=== PATIENT | male | born 1950 | race Caucasian/White ===

== ENCOUNTER 2021-04-02 11:35 | Inpatient (IN) | payer MEDICARE, BC ==
[2021-04-02] MEDS ORDERED: Sodium Chloride 0.9% 1,000 ML IV ONE (12:24)
[2021-04-02] MEDS ORDERED: Sodium Chloride 0.9% 2.5 ML Syringe FLUSH PRN (12:24)
[2021-04-02] MEDS ORDERED: Sodium Chloride 0.9% 10 ML Syringe FLUSH PRN (12:24)
--- NOTE | 2021-04-02 12:25 | EDM.PDOC ---
ED HPI GENERAL MEDICAL PROBLEM - General Chief Complaint: Respiratory Problem Stated Complaint: SOB Time Seen by Provider: 04/02/21 12:03 Source of Information: Reports: Patient History Limitations: Reports: No Limitations - History of Present Illness INITIAL COMMENTS - FREE TEXT/NARRATIVE: HISTORY AND PHYSICAL: History of present illness: The patient is a 70-year-old male who presents to the emergency room with complaints of increased shortness of breath with possible COVID-19. The patient's states that he has had 12 days of fatigue and shortness of breath. The patient states that his took a home COVID-19 test which was positive. The patient himself has not had a COVID-19 test. Patient states that he will have extreme fatigue and some shortness of breath for a few days and then have several days for which he feels better. And then the cycle will repeat. The patient has been monitoring his SPO2 at home and this morning it fell to 88%. The patient states that he has lost his taste but not his sense of smell. He denies nausea and vomiting. The patient states that he had diarrhea on his first day but has since had normal bowel movements. The patient stated he had a headache for the first 2 days of his illness, but none since then. Patient denies any fever, chills, change in vision, syncope or near syncope. Denies any chest pain or back pain. Denies any abdominal pain, dysuria. Has not noted any blood in urine or stool. Patient has been eating and drinking appropriately. Review of systems: As per history of present illness and below otherwise all systems reviewed and negative. Past medical history: As per history of present illness and as reviewed below otherwise noncontributory. Surgical history: As per history of present illness and as reviewed below otherwise noncontributory. Social history: See social history for further information Family history: As per history of present illness and as reviewed below otherwise noncon tributory. Physical exam: General: Well developed and well nourished. Alert and orientated x 3. Nontoxic in appearance and in no acute distress. Vital signs are stable and have been reviewed by me. Nursing notes were reviewed. HEENT: Atraumatic, normocephalic, pupils equal and reactive bilaterally, negative for conjunctival pallor or scleral icterus, mucous membranes moist, TMs normal bilaterally, throat clear, neck supple, nontender, trachea midline. No drooling or trismus noted. No meningeal signs. No hot potato voice noted. Lungs: Clear to auscultation bilaterally. No wheezes, rales, or rhonchi. Chest nontender. Normal work of breathing, no accessory muscles used. Heart: S1S2, regular rate and rhythm without overt murmur, gallops, or rubs. No JVD. No peripheral edema Abdomen: Soft, nondistended, nontender. Normoactive bowel sounds. Negative for masses or costovertebral tenderness. Skin: Intact, warm, dry. No lesions or rashes noted. Hematologic: No petechiae or purpra. Mucosa appropriate color and normal nail bed color and refill. Extremities: Atraumatic, moves all extremities per self without difficulty or deficits, negative for cords or calf pain. Neurovascular unremarkable. Neuro: Awake, alert, oriented. Cranial nerves II through XII unremarkable. Cerebellum unremarkable. Motor and sensory unremarkable throughout. Exam nonfocal. Psychiatric: Mood and affect are appropriate. Normal thought process. Answering questions appropriately. Notes: *This patient was seen and evaluated during the 2019 SARS-CoV-2 novel coronavirus pandemic period. Community viral transmission is ongoing at time of this encounter and the emergency department is operating under pandemic response procedures. As stated above the patient is a 70-year-old male who presents to the emergency department with complaints of shortness of breath. His home SPO2 has been 88%. The patient's has the same symptoms but is not short of breath. She tested positive for Covid with a home test approximately 10 days ago. Had the patient ambulate in the room with his PO2 monitor on. At initiation the patient was 90% on room air. After approximately 1 minute of walking around the room the pa tient decreased to 88%. Upon resting for 1.5 minutes the patient SPO2 was 90 to 92% room air. 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 The patient states that he has mild hypertension. He states that he exercises at least 5 times per week. The patient does not take any diuretics in denies heart failure. I will obtain lab work, a chest x-ray, EKG, and give the patient some IV fluids. The patient is agreeable with this plan. The patient's CBC and CMP are unremarkable. The patient is COVID-19 positive. I applied oxygen at 2 L. Patient as he continued to walk his oxygen saturation would drop into the high 80s. I spoke with the patient about possible discharge to home and he expressed that he would prefer to go home, however, he is unable to eat and is drinking very little. Due to the patient's age and comorbidities I have spoken with Dr. Burris who is agreeable with inpatient admission with telemetry. The patient's vital signs are stable at this time. I phoned the patient's and informed her of the patient's status and of the plan for admission. She was agreeable with this plan, as is the patient. Diagnostics: CBC, CMP, troponin, COVID-19 swab, EKG, CXR 1 view Therapeutics: Fluids Impression: Hypoxia, COVID-19 Definitive disposition and diagnosis as appropriate pending reevaluation and review of above. - Related Data Allergies Allergy/AdvReac Type Severity Reaction Status Date / Time No Known Allergies Allergy Verified 04/02/21 16:36 Home Meds: Home Meds Aspirin [Aspirin EC] 1 tab PO DAILY 07/26/15 [History] Metoprolol Succinate [Toprol XL] 1 tab PO DAILY 07/26/15 [History] Verapamil HCl [Verapamil ER] 120 mg PO DAILY 04/02/21 [History] atorvaSTATin [Lipitor] 20 mg PO BEDTIME 04/02/21 [History] Past Medical History HEENT History: Reports: None Cardiovascular History: Reports: High Cholesterol, Hypertension Respiratory History: Reports: None Gastrointestinal History: Reports: None Genitourinary History: Reports: Retention, Urinary Musculoskeletal History: Reports: None Neurological History: Reports: None Psychiatric History: Reports: None Endocrine/Metabolic History: Reports: Obesity/BMI 30+ Hematologic History: Reports: None Immunologic History: Reports: None Oncologic (Cancer) History: Reports: Prostate Dermatologic History: Reports: None - Infectious Disease History Infectious Disease History: Reports: Chicken Pox - Past Surgical History Head Surgeries/Procedures: Reports: None Cardiovascular Surgical History: Reports: None Male Surgical History: Reports: Prostatectomy, TURP-Transurethral Resection of Prostate Endocrine Surgical History: Reports: None Musculoskeletal Surgical History: Reports: Other (See Below) Other Musculoskeletal Surgeries/Procedures:: right achilles repair Oncologic Surgical History: Reports: None Social & Family History - Family History Family Medical History: No Pertinent Family History Oncologic: Reports: Colon, Other (See Below) Other Oncologic Family History: ovarian - Tobacco Use Tobacco Use Status *Q: Never Tobacco User Second Hand Smoke Exposure: Yes - Caffeine Use Caffeine Use: Reports: Coffee - Recreational Drug Use Recreational Drug Use: No ED ROS GENERAL - Review of Systems Review Of Systems: Comprehensive ROS is negative, except as noted in HPI. ED EXAM, GENERAL - Physical Exam Exam: See Below (See dictation) Course - Vital Signs Last Recorded V/S: Last Vital Signs Temp 98.1 F 04/02/21 19:49 Pulse 70 04/02/21 19:49 Resp 19 04/02/21 19:49 BP 145/83 H 04/02/21 19:49 Pulse Ox 92 L 04/02/21 19:49 - Orders/Labs/Meds Orders: Active Orders 24 hr Category Date Time Status Sodium Chloride 0.9% [Saline Flush] Med 04/02/21 12:24 Active 10 ml FLUSH ASDIRECTED PRN Sodium Chloride 0.9% [Saline Flush] Med 04/02/21 12:24 Active 2.5 ml FLUSH ASDIRECTED PRN Saline Lock Insert [OM.PC] Stat Oth 04/02/21 12:24 Ordered Medication Orders Acetaminophen (Acetaminophen 325 Mg Tab) 650 mg PO Q4H PRN PRN Reason: Pain (Mild 1-3)/fever Albuterol/Ipratropium (Albuterol/Ipratropium 3.0-0.5 Mg/3 Ml Neb Soln) 3 ml NEB Q4HRRT PRN PRN Reason: Shortness Of Breath/wheezing Albuterol/Ipratropium (Albuterol/Ipratropium 4 Gm Inhalation [place]) 0 gm INH Q4H [facility] Last Admin: 04/02/21 20:00 Dose: 2 puff Documented by: Admin: 04/02/21 17:37 Dose: 2 puff Documented by: NEVIN Dexamethasone (Dexamethasone 4 Mg Tab) 6 mg PO DAILY [facility] Last Admin: 04/02/21 17:40 Dose: 6 mg Documented by: NEVIN Enoxaparin Sodium (Enoxaparin 40 Mg/0.4 Ml Syringe) 40 mg SUBCUT Q24H [facility] Last Admin: 04/02/21 17:40 Dose: 40 mg Documented by: NEVIN Pantoprazole Sodium 40 mg/ (Sodium Chloride) 10 mls @ 300 mls/hr IV DAILY [facility] Remdesivir 100 mg/ Sodium (Chloride) 100 mls @ 100 mls/hr IV Q24H [facility] Stop: 04/06/21 17:14 Ondansetron HCl (Ondansetron 4 Mg/2 Ml Sdv) 4 mg IVPUSH Q4H PRN PRN Reason: Nausea/Vomiting Sodium Chloride (Sodium Chloride 0.9% 10 Ml Syringe) 10 ml FLUSH ASDIRECTED PRN PRN Reason: Keep Vein Open Last Admin: 04/02/21 12:40 Dose: 10 ml Documented by: OSBALDO Sodium Chloride (Sodium Chloride 0.9% 2.5 Ml Syringe) 2.5 ml FLUSH ASDIRECTED PRN PRN Reason: Keep Vein Open Last Admin: 04/02/21 12:40 Dose: 2.5 ml Documented by: OSBALDO Labs: Laboratory Tests 04/02/21 04/02/21 04/02/21 Range/Units 12:12 12:54 12:54 WBC 5.37 (4.0-11.0) K/uL RBC 4.78 (4.50-5.90) M/uL Hgb 15.0 (13.0-17.0) g/dL Hct 43.4 (38.0-50.0) % MCV 90.8 (80.0-98.0) fL MCH 31.4 (27.0-32.0) pg MCHC 34.6 (31.0-37.0) g/dL RDW Std Deviation 45.5 (28.0-62.0) fl RDW Coeff of Dianna 14 (11.0-15.0) % Plt Count 183 (150-400) K/uL MPV 10.30 (7.40-12.00) fL Neut % (Auto) 67.2 (48.0-80.0) % Lymph % (Auto) 20.9 (16.0-40.0) % [place] % (Auto) 11.7 (0.0-15.0) % Eos % (Auto) 0.0 (0.0-7.0) % Baso % (Auto) 0.2 (0.0-1.5) % Neut # (Auto) 3.6 (1.4-5.7) K/uL Lymph # (Auto) 1.1 (0.6-2.4) K/uL [place] # (Auto) 0.6 (0.0-0.8) K/uL Eos # (Auto) 0.0 (0.0-0.7) K/uL Baso # (Auto) 0.0 (0.0-0.1) K/uL Nucleated RBC % 0.0 /100WBC Nucleated RBCs # 0 K/uL Sodium 136 (136-148) mmol/L Potassium 4.2 (3.5-5.1) mmol/L Chloride 101 (98-107) mmol/L Carbon Dioxide 24.2 (21.0-32.0) mmol/L BUN 17 (7.0-18.0) mg/dL Creatinine 1.1 (0.8-1.3) mg/dL Est Cr Clr Drug Dosing 62.18 mL/min Estimated GFR (MDRD) > 60.0 ml/min Glucose 104 (74-106) mg/dL Calcium 8.7 (8.5-10.1) mg/dL Magnesium 2.1 (1.8-2.4) mg/dL Total Bilirubin 0.6 (0.2-1.0) mg/dL AST 46 H (15-37) IU/L ALT 58 (14-63) IU/L Alkaline Phosphatase 96 (46-116) U/L Troponin I < 0.050 (0.000-0.056) ng/mL Total Protein 6.9 (6.4-8.2) g/dL Albumin 3.4 (3.4-5.0) g/dL Globulin 3.5 (2.6-4.0) g/dL Albumin/Globulin Ratio 1.0 (0.9-1.6) SARS-CoV-2 RNA (LEVAR) POSITIVE H (NEGATIVE) Meds: Medications Generic Name Dose Route Start Last Admin Trade Name Freq PRN Reason Stop Dose Admin Acetaminophen 650 mg 04/02/21 16:10 Acetaminophen 325 Mg Tab PO Q4H PRN Pain (Mild 1-3)/fever Albuterol/Ipratropium 3 ml 04/02/21 16:10 Albuterol/Ipratropium 3.0-0.5 Mg/3 Ml Neb Soln NEB Q4HRRT PRN Shortness Of Breath/wheezing Albuterol/Ipratropium 0 gm 04/02/21 16:15 04/02/21 20:00 Albuterol/Ipratropium 4 Gm Inhalation [place] INH 2 puff Q4H [facility] Administration Dexamethasone 6 mg 04/02/21 16:15 04/02/21 17:40 Dexamethasone 4 Mg Tab PO 6 mg DAILY [facility] Administration Enoxaparin Sodium 40 mg 04/02/21 16:15 04/02/21 17:40 Enoxaparin 40 Mg/0.4 Ml Syringe SUBCUT 40 mg Q24H [facility] Administration Pantoprazole Sodium 40 mg/ 10 mls @ 300 mls/hr 04/03/21 09:00 Sodium Chloride IV DAILY [facility] Remdesivir 100 mg/ Sodium 100 mls @ 100 mls/hr 04/03/21 16:15 Chloride IV 04/06/21 17:14 Q24H [facility] Ondansetron HCl 4 mg 04/02/21 16:10 Ondansetron 4 Mg/2 Ml Sdv IVPUSH Q4H PRN Nausea/Vomiting Sodium Chloride 10 ml 04/02/21 12:24 04/02/21 12:40 Sodium Chloride 0.9% 10 Ml Syringe FLUSH 10 ml ASDIRECTED PRN Administration Keep Vein Open Sodium Chloride 2.5 ml 04/02/21 12:24 04/02/21 12:40 Sodium Chloride 0.9% 2.5 Ml Syringe FLUSH 2.5 ml ASDIRECTED PRN Administration Keep Vein Open Discontinued Medications Generic Name Dose Route Start Last Admin Trade Name Freq PRN Reason Stop Dose Admin Albuterol/Ipratropium 0 gm 04/02/21 16:14 Albuterol/Ipratropium 4 Gm Inhalation [place] INH Q4H PRN Dyspnea Sodium Chloride 1,000 mls @ 999 mls/hr 04/02/21 12:24 04/02/21 12:40 Normal Saline IV 04/02/21 13:24 999 mls/hr .BOLUS ONE Administration Remdesivir 200 mg/ Sodium 250 mls @ 250 mls/hr 04/02/21 16:30 04/02/21 17:40 Chloride IV 04/02/21 17:29 250 mls/hr ONETIME ONE Administration Departure - Departure Time of Disposition: 14:43 Disposition: Admitted As Inpatient 68 Condition: Good Clinical Impression: Hypoxia, COVID-19 - Discharge Information Sepsis Event Note (ED) - Evaluation Sepsis Screening Result: No Definite Risk - Focused Exam Vital Signs: Vital Signs Temp Temp Pulse Resp BP Pulse Ox 04/02/21 14:34 68 145/76 H 93 L 04/02/21 14:04 63 142/85 H 91 L 04/02/21 13:14 98.9 F 64 20 129/72 91 L 04/02/21 12:34 80 154/82 H 90 L 04/02/21 12:02 97.7 F 71 18 154/82 H 92 L - My Orders Last 24 Hours: My Active Orders 04/02/21 12:24 Sodium Chloride 0.9% [Saline Flush] 10 ml FLUSH ASDIRECTED PRN Sodium Chloride 0.9% [Saline Flush] 2.5 ml FLUSH ASDIRECTED PRN Saline Lock Insert [OM.PC] Stat - Assessment/Plan Last 24 Hours: My Active Orders 04/02/21 12:24 Sodium Chloride 0.9% [Saline Flush] 10 ml FLUSH ASDIRECTED PRN Sodium Chloride 0.9% [Saline Flush] 2.5 ml FLUSH ASDIRECTED PRN Saline Lock Insert [OM.PC] Stat
[2021-04-02 13:27] LABS: BLOOD UREA NITROGEN,BUN 17 mg/dL (7.0-18.0); CARBON DIOXIDE,CO2 24.2 mmol/L (21.0-32.0); CHLORIDE,CL 101 mmol/L (98-107); GLUCOSE RANDOM 104 mg/dL (74-106); POTASSIUM,K 4.2 mmol/L (3.5-5.1); SODIUM,NA 136 mmol/L (136-148)
--- NOTE | 2021-04-02 13:59 | CR ---
INDICATION: Shortness breath TECHNIQUE: Single view chest. FINDINGS: Normal cardiac mediastinal silhouette. Bibasilar patchy infiltrates. No effusion. No pneumothorax. Median sternotomy. IMPRESSION: Bibasilar patchy infiltrates. Dictated by Denise Hawthorne MD @ 04/02/2021 1:57:[address] Denise Hawthorne @ Apr 02 2021 1:57PM
[2021-04-02] MEDS ORDERED: Ondansetron 4 MG/2 ML SDV IVPUSH PRN (16:10)
[2021-04-02] MEDS ORDERED: Acetaminophen 325 MG Tab PO PRN (16:10)
[2021-04-02] MEDS ORDERED: Albuterol/Ipratropium 3.0-0.5 MG/3 ML Neb Soln NEB PRN (16:10)
[2021-04-02] MEDS ORDERED: Albuterol/Ipratropium 4 GM Inhalation Spray INH PRN (16:14)
--- NOTE | 2021-04-02 16:15 | PCM.HP.2 ---
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 Patient states that he has been having fatigue and shortness of breath for last 2 weeks. Patient states that his took Covid test at home which was positive but he himself has not been tested for it. Patient states that he has had episodes of extreme fatigue and some shortness of breath for past few days and, there were days when he felt better but other days when he felt worse. He also has since lost his sense of taste but not the sense of smell. He denies nausea vomiting and has been otherwise eating and drinking well. Patient states that he did have some diarrhea initially but ever since has had normal bowel movements. Patient has other nonspecific symptoms such as mild headache, fatigue, weakness. Patient denies any abdominal pain, dysuria, bloody urine or stool, dizziness, syncope, change in vision, fever or chills. In the ER patient was found to be 90% on room air, patient was given a walking trial upon which he dropped to 88%. Patient was started on 2 L of oxygen with which she was maintained 92%. Patient was tested for Covid which came back positive. Patient was admitted to the hospital for further management of acute hypoxic respiratory failure secondary to Covid pneumonia. Patient states that otherwise he maintains healthy lifestyle and patient states that he works out aggressively 5 times a week. Patient has not been vaccinated as he thought that he was pretty healthy and did not think it was needed. - Related Data Allergies/Adverse Reactions: Allergies Allergy/AdvReac Type Severity Reaction Status Date / Time No Known Allergies Allergy Verified 04/02/21 16:36 Home Medications: Home Meds Aspirin [Aspirin EC] 1 tab PO DAILY 07/26/15 [History] Metoprolol Succinate [Toprol XL] 1 tab PO DAILY 07/26/15 [History] Verapamil HCl [Verapamil ER] 5 mg PO DAILY 04/02/21 [History] atorvaSTATin [Lipitor] 20 mg PO BEDTIME 04/02/21 [History] Past Medical History HEENT History: Reports: None Cardiovascular History: Reports: High Cholesterol, Hypertension Respiratory History: Reports: None Gastrointestinal History: Reports: None Genitourinary History: Reports: Retention, Urinary Musculoskeletal History: Reports: None Neurological History: Reports: None Psychiatric History: Reports: None Endocrine/Metabolic History: Reports: Obesity/BMI 30+ Hematologic History: Reports: None Immunologic History: Reports: None Oncologic (Cancer) History: Reports: Prostate Dermatologic History: Reports: None - Infectious Disease History Infectious Disease History: Reports: Chicken Pox - Past Surgical History Head Surgeries/Procedures: Reports: None Cardiovascular Surgical History: Reports: None Male Surgical History: Reports: Prostatectomy, TURP-Transurethral Resection of Prostate Endocrine Surgical History: Reports: None Musculoskeletal Surgical History: Reports: Other (See Below) Other Musculoskeletal Surgeries/Procedures:: right achilles repair Oncologic Surgical History: Reports: None Social & Family History - Family History Family Medical History: No Pertinent Family History Oncologic: Reports: Colon, Other (See Below) Other Oncologic Family History: ovarian - Tobacco Use Tobacco Use Status *Q: Never Tobacco User Second Hand Smoke Exposure: Yes - Caffeine Use Caffeine Use: Reports: Coffee - Recreational Drug Use Recreational Drug Use: No H&P Review of Systems - Review of Systems: Review Of Systems: See Below General: Reports: Malaise, Weakness, Fatigue. Denies: Fever, Chills Pulmonary: Reports: Shortness of Breath, Cough. Denies: Wheezing Cardiovascular: Denies: Chest Pain, Palpitations Gastrointestinal: Denies: Abdominal Pain, Anorexia, Black Stool, Bloody Stool, Constipation, Vomiting Genitourinary: Denies: Dysuria, Frequency, Burning, Pain Musculoskeletal: Denies: Neck Pain, Shoulder Pain, Arm Pain Skin: Denies: Cyanosis, Jaundice, Mottled Psychiatric: Denies: Confusion, Depression, Mood Lability Neurological: Denies: Confusion, Dizziness, Headache Exam - Exam Exam: See Below - Vital Signs Vital Signs: Last Vital Signs Temp 36.4 C 04/02/21 16:09 Pulse 66 04/02/21 16:09 Resp 18 04/02/21 16:09 BP 144/77 H 04/02/21 16:09 Pulse Ox 92 L 04/02/21 16:09 Weight: 90.718 kg - Exam Quality Assessment: Supplemental Oxygen General: Alert, Oriented, Cooperative, Mild Distress Neck: Supple, Trachea Midline Lungs: Normal Respiratory Effort, Decreased Breath Sounds. No: Crackles, Rales Cardiovascular: Regular Rate, Regular Rhythm GI/Abdominal Exam: Normal Bowel Sounds, Soft, Non-Tender - Patient Data Lab Results Last 24 hrs: Laboratory Results - last 24 hr 04/02/21 04/02/21 04/02/21 Range/Units 12:12 12:54 12:54 WBC 5.37 (4.0-11.0) K/uL RBC 4.78 (4.50-5.90) M/uL Hgb 15.0 (13.0-17.0) g/dL Hct 43.4 (38.0-50.0) % MCV 90.8 (80.0-98.0) fL MCH 31.4 (27.0-32.0) pg MCHC 34.6 (31.0-37.0) g/dL RDW Std Deviation 45.5 (28.0-62.0) fl RDW Coeff of Dianna 14 (11.0-15.0) % Plt Count 183 (150-400) K/uL MPV 10.30 (7.40-12.00) fL Neut % (Auto) 67.2 (48.0-80.0) % Lymph % (Auto) 20.9 (16.0-40.0) % Hawkins % (Auto) 11.7 (0.0-15.0) % Eos % (Auto) 0.0 (0.0-7.0) % Baso % (Auto) 0.2 (0.0-1.5) % Neut # (Auto) 3.6 (1.4-5.7) K/uL Lymph # (Auto) 1.1 (0.6-2.4) K/uL Hawkins # (Auto) 0.6 (0.0-0.8) K/uL Eos # (Auto) 0.0 (0.0-0.7) K/uL Baso # (Auto) 0.0 (0.0-0.1) K/uL Nucleated RBC % 0.0 /100WBC Nucleated RBCs # 0 K/uL Sodium 136 (136-148) mmol/L Potassium 4.2 (3.5-5.1) mmol/L Chloride 101 (98-107) mmol/L Carbon Dioxide 24.2 (21.0-32.0) mmol/L BUN 17 (7.0-18.0) mg/dL Creatinine 1.1 (0.8-1.3) mg/dL Est Cr Clr Drug Dosing 62.18 mL/min Estimated GFR (MDRD) > 60.0 ml/min Glucose 104 (74-106) mg/dL Calcium 8.7 (8.5-10.1) mg/dL Magnesium 2.1 (1.8-2.4) mg/dL Total Bilirubin 0.6 (0.2-1.0) mg/dL AST 46 H (15-37) IU/L ALT 58 (14-63) IU/L Alkaline Phosphatase 96 (46-116) U/L Troponin I < 0.050 (0.000-0.056) ng/mL Total Protein 6.9 (6.4-8.2) g/dL Albumin 3.4 (3.4-5.0) g/dL Globulin 3.5 (2.6-4.0) g/dL Albumin/Globulin Ratio 1.0 (0.9-1.6) SARS-CoV-2 RNA (LEVAR) POSITIVE H (NEGATIVE) Result Diagrams: 04/02/21 12:54 04/02/21 12:54 Sepsis Event Note - Evaluation Sepsis Screening Result: No Definite Risk - Focused Exam Vital Signs: Vital Signs Temp Temp Pulse Resp BP Pulse Ox 04/02/21 16:09 36.4 C 66 18 144/77 H 92 L 04/02/21 15:35 75 133/73 93 L 04/02/21 15:04 68 140/75 91 L 04/02/21 14:34 68 145/76 H 93 L 04/02/21 14:04 63 142/85 H 91 L 04/02/21 13:14 37.2 C 64 20 129/72 91 L 04/02/21 12:34 80 154/82 H 90 L 04/02/21 12:02 36.5 C 71 18 154/82 H 92 L - Problem List (1) Hx of CABG SNOMED Code(s): 067044215, 863728642 ICD Code: Z95.1 - PRESENCE OF AORTOCORONARY BYPASS GRAFT Status: Acute Current Visit: Yes (2) Hypertension SNOMED Code(s): 93362725 ICD Code: I10 - ESSENTIAL (PRIMARY) HYPERTENSION Status: Acute Current Visit: Yes (3) Hyperlipidemia SNOMED Code(s): 84362620 ICD Code: E78.5 - HYPERLIPIDEMIA, UNSPECIFIED Status: Acute Current Visit: Yes (4) S/P TURP SNOMED Code(s): 968601557, 14838756, 477391095 ICD Code: Z90.79 - ACQUIRED ABSENCE OF OTHER GENITAL ORGAN(S) Status: Acute Current Visit: Yes (5) COVID-19 SNOMED Code(s): 630699836 ICD Code: U07.1 - COVID-19 Status: Acute Current Visit: Yes (6) Hypoxia SNOMED Code(s): 527733522 ICD Code: R09.02 - HYPOXEMIA Status: Acute Current Visit: Yes Problem List Initiated/Reviewed/Updated: Yes Orders Last 24hrs: Active Orders 24 hr Category Date Time Status Admission Status [Patient Status] [ADT] Stat ADT 04/02/21 14:42 Active Ambulate [RC] ASDIRECTED Care 04/02/21 16:10 Active Antiembolic Devices [RC] PER UNIT ROUTINE Care 04/02/21 16:11 Active Oxygen Therapy [RC] PRN Care 04/02/21 16:11 Active RT Aerosol Therapy [RC] ASDIRECTED Care 04/02/21 16:12 Active RT Post Treatment Assessment [RC] Click to Edit Care 04/02/21 16:14 Active RT Pre-Treatment Assessment [RC] Click to Edit Care 04/02/21 16:14 Active VTE/DVT Education [RC] PER UNIT ROUTINE Care 04/02/21 16:11 Active Vital Signs [RC] Q4H Care 04/02/21 16:11 Active Heart Healthy Diet [DIET] Diet 04/02/21 Dinner Active Acetaminophen [TylenoL] Med 04/02/21 16:10 Ordered 650 mg PO Q4H PRN Albuterol/Ipratropium [Combivent Respimat] Med 04/02/21 16:15 Ordered See Dose Instructions INH Q4H Albuterol/Ipratropium [Combivent Respimat] Med 04/02/21 16:14 Stop Req See Dose Instructions INH Q4H PRN Albuterol/Ipratropium [DuoNeb 3.0-0.5 MG/3 ML] Med 04/02/21 16:10 Ordered 3 ml NEB Q4HRRT PRN Enoxaparin [Lovenox] Med 04/02/21 16:15 Ordered 40 mg SUBCUT Q24H Ondansetron [Zofran] Med 04/02/21 16:10 Ordered 4 mg IVPUSH Q4H PRN Pantoprazole [ProTONIX IV] 40 mg Med 04/03/21 09:00 Ordered Sodium Chloride 0.9% [Normal Saline] 10 ml IV DAILY Remdesivir 100 mg Med 04/02/21 16:15 Ordered Sodium Chloride 0.9% [Normal Saline] 100 ml IV Q24H Remdesivir 200 mg Med 04/03/21 16:12 Ordered Sodium Chloride 0.9% [Normal Saline] 250 ml IV ONETIME Sodium Chloride 0.9% [Saline Flush] Med 04/02/21 12:24 Active 10 ml FLUSH ASDIRECTED PRN Sodium Chloride 0.9% [Saline Flush] Med 04/02/21 12:24 Active 2.5 ml FLUSH ASDIRECTED PRN dexAMETHasone Med 04/02/21 16:15 Ordered 6 mg PO DAILY Saline Lock Insert [OM.PC] Stat Oth 04/02/21 12:24 Ordered Sequential Compression Device [OM.PC] Per Unit Routine Oth 04/02/21 16:11 Ordered Medication Orders Acetaminophen (Acetaminophen 325 Mg Tab) 650 mg PO Q4H PRN PRN Reason: Pain (Mild 1-3)/fever Albuterol/Ipratropium (Albuterol/Ipratropium 3.0-0.5 Mg/3 Ml Neb Soln) 3 ml NEB Q4HRRT PRN PRN Reason: Shortness Of Breath/wheezing Albuterol/Ipratropium (Albuterol/Ipratropium 4 Gm Inhalation [place]andy[place]) 0 gm INH Q4H PRN PRN Reason: Dyspnea Dexamethasone (Dexamethasone 4 Mg Tab) 6 mg PO DAILY [facility]ACY Enoxaparin Sodium (Enoxaparin 40 Mg/0.4 Ml Syringe) 40 mg SUBCUT Q24H TRACY Pantoprazole Sodium 40 mg/ (Sodium Chloride) 10 mls @ 300 mls/hr IV DAILY [facility]ACY Remdesivir 200 mg/ Sodium (Chloride) 250 mls @ 250 mls/hr IV ONETIME ONE Stop: 04/03/21 16:13 Remdesivir 100 mg/ Sodium (Chloride) 100 mls @ 100 mls/hr IV Q24H [facility] Stop: 04/05/21 17:14 Ondansetron HCl (Ondansetron 4 Mg/2 Ml Sdv) 4 mg IVPUSH Q4H PRN PRN Reason: Nausea/Vomiting Sodium Chloride (Sodium Chloride 0.9% 10 Ml Syringe) 10 ml FLUSH ASDIRECTED PRN PRN Reason: Keep Vein Open Last Admin: 04/02/21 12:40 Dose: 10 ml Documented by: OSBALDO Sodium Chloride (Sodium Chloride 0.9% 2.5 Ml Syringe) 2.5 ml FLUSH ASDIRECTED PRN PRN Reason: Keep Vein Open Last Admin: 04/02/21 12:40 Dose: 2.5 ml Documented by: OSBALDO Assessment/Plan Comment:: 70-year-old old male admitted for acute hypoxic respiratory failure secondary to Covid Currently requiring 2 L of nasal cannula We will start patient on remdesivir, dexamethasone, Combivent, Lovenox Continue supportive care as needed Patient was able to tolerate his lunch well Resume home meds as appropriate DC in 1 to 2 days based on patient's hospital course
[2021-04-02] MEDS ORDERED: REMDESIVIR 200 MG in Sodium Chloride 0.9% 250 ML IV ONE (16:30)
[2021-04-02] MEDS: Albuterol/Ipratropium 4 GM Inhalation Spray INH SCH ×3 (17:37→23:39)
[2021-04-02] MEDS: Dexamethasone 4 MG Tab PO SCH (17:40)
[2021-04-02] MEDS: Enoxaparin 40 MG/0.4 ML Syringe SUBCUT SCH (17:40)
[2021-04-03] MEDS: Albuterol/Ipratropium 4 GM Inhalation Spray INH SCH ×5 (04:48→20:08)
[2021-04-03 06:58] LABS: BLOOD UREA NITROGEN,BUN 13 mg/dL (7.0-18.0); CARBON DIOXIDE,CO2 27.2 mmol/L (21.0-32.0); CHLORIDE,CL 105 mmol/L (98-107); GLUCOSE RANDOM 134 mg/dL (74-106); POTASSIUM,K 4.9 mmol/L (3.5-5.1); SODIUM,NA 139 mmol/L (136-148)
--- NOTE | 2021-04-03 07:14 | PCM.EKG ---
#1 Interpretation EKG Date: 04/02/21 Time: 12:31 Rhythm: NSR Rate (Beats/Min): 67 [place]: Normal P-Wave: Present QRS: RBBB ST-T: Normal QT: Normal VT/PQ Interval: 240 Comparison: NA - No Prior EKG EKG Interpretation Comments: Sinus Rhythm with prolonged VT with RBBB
[2021-04-03] MEDS ORDERED: Aspirin 325 MG Tab.EC PO SCH (09:00)
[2021-04-03] MEDS: Metoprolol Succinate 25 MG Tab.ER PO SCH (09:01)
[2021-04-03] MEDS: Dexamethasone 4 MG Tab PO SCH (09:01)
[2021-04-03] MEDS: Pantoprazole 40 MG in Sodium Chloride 0.9% 10 ML IV SCH (09:02)
[2021-04-03] MEDS ORDERED: Non-Formulary Medication 1 Each (Ramipril 5 MG Capsule) PO SCH (11:15)
--- NOTE | 2021-04-03 15:23 | PCM.PN ---
- General Info Date of Service: 04/03/21 Admission Dx/Problem (Free Text): Admission Diagnosis/Problem Admission Diagnosis/Problem Hypoxia Subjective Update: Patient seen at bedside, states that he feels much better today, seen ambulating in the room on Functional Status: Reports: Tolerating Diet, Ambulating, Urinating - Review of Systems General: Denies: Fever, Weakness, Fatigue Pulmonary: Reports: Shortness of Breath, Cough. Denies: Pleuritic Chest Pain, Sputum Cardiovascular: Reports: Dyspnea on Exertion. Denies: Chest Pain, Palpitations Gastrointestinal: Denies: Abdominal Pain, Constipation, Decreased Appetite Genitourinary: Denies: Dysuria, Frequency, Burning Musculoskeletal: Denies: Neck Pain, Shoulder Pain, Arm Pain, Hand Pain Skin: Denies: Cyanosis, Jaundice, Mottled - Patient Data Vitals - Most Recent: Last Vital Signs Temp 36.2 C 04/03/21 12:00 Pulse 65 04/03/21 12:00 Resp 18 04/03/21 12:00 BP 123/71 04/03/21 12:00 Pulse Ox 90 L 04/03/21 12:00 Weight - Most Recent: 102.784 kg I&O - Last 24 Hours: Intake & Output 04/03/21 04/03/21 04/03/21 06:59 14:59 22:59 Intake Total 850 Output Total 1450 Balance -600 Lab Results Last 24 Hours: Laboratory Results - last 24 hr 04/03/21 04/03/21 Range/Units 05:35 05:35 WBC 3.70 L (4.0-11.0) K/uL RBC 4.63 (4.50-5.90) M/uL Hgb 14.3 (13.0-17.0) g/dL Hct 42.2 (38.0-50.0) % MCV 91.1 (80.0-98.0) fL MCH 30.9 (27.0-32.0) pg MCHC 33.9 (31.0-37.0) g/dL RDW Std Deviation 45.7 (28.0-62.0) fl RDW Coeff of Dianna 14 (11.0-15.0) % Plt Count 189 (150-400) K/uL MPV 10.50 (7.40-12.00) fL Neut % (Auto) 59.7 (48.0-80.0) % Lymph % (Auto) 29.2 (16.0-40.0) % Leon % (Auto) 10.8 (0.0-15.0) % Eos % (Auto) 0.0 (0.0-7.0) % Baso % (Auto) 0.3 (0.0-1.5) % Neut # (Auto) 2.2 (1.4-5.7) K/uL Lymph # (Auto) 1.1 (0.6-2.4) K/uL Leon # (Auto) 0.4 (0.0-0.8) K/uL Eos # (Auto) 0.0 (0.0-0.7) K/uL Baso # (Auto) 0.0 (0.0-0.1) K/uL Nucleated RBC % 0.0 /100WBC Nucleated RBCs # 0 K/uL Sodium 139 (136-148) mmol/L Potassium 4.9 (3.5-5.1) mmol/L Chloride 105 (98-107) mmol/L Carbon Dioxide 27.2 (21.0-32.0) mmol/L BUN 13 (7.0-18.0) mg/dL Creatinine 1.0 (0.8-1.3) mg/dL Est Cr Clr Drug Dosing 69.55 mL/min Estimated GFR (MDRD) > 60.0 ml/min Glucose 134 H (74-106) mg/dL Calcium 8.5 (8.5-10.1) mg/dL Phosphorus 4.8 H (2.6-4.7) mg/dL Magnesium 2.3 (1.8-2.4) mg/dL Total Bilirubin 0.4 (0.2-1.0) mg/dL AST 40 H (15-37) IU/L ALT 51 (14-63) IU/L Alkaline Phosphatase 85 (46-116) U/L Total Protein 6.6 (6.4-8.2) g/dL Albumin 3.1 L (3.4-5.0) g/dL Globulin 3.5 (2.6-4.0) g/dL Albumin/Globulin Ratio 0.9 (0.9-1.6) Med Orders - Current: Current Medications Acetaminophen (Acetaminophen 325 Mg Tab) 650 mg PO Q4H PRN PRN Reason: Pain (Mild 1-3)/fever Albuterol/Ipratropium (Albuterol/Ipratropium 3.0-0.5 Mg/3 Ml Neb Soln) 3 ml NEB Q4HRRT PRN PRN Reason: Shortness Of Breath/wheezing Albuterol/Ipratropium (Albuterol/Ipratropium 4 Gm Inhalation Arthur) 0 gm INH Q4H [facility] Last Admin: 04/03/21 12:51 Dose: 2 puff Documented by: Aspirin (Aspirin 325 Mg Tab.Ec) 650 mg PO DAILY [facility] Last Admin: 04/03/21 08:59 Dose: 650 mg Documented by: Atorvastatin Calcium (Atorvastatin 20 Mg Tab) 20 mg PO BEDTIME [facility] Dexamethasone (Dexamethasone 4 Mg Tab) 6 mg PO DAILY [facility] Last Admin: 04/03/21 09:01 Dose: 6 mg Documented by: Enoxaparin Sodium (Enoxaparin 40 Mg/0.4 Ml Syringe) 40 mg SUBCUT Q24H [facility] Last Admin: 04/02/21 17:40 Dose: 40 mg Documented by: Pantoprazole Sodium 40 mg/ (Sodium Chloride) 10 mls @ 300 mls/hr IV DAILY [facility] Last Admin: 04/03/21 09:02 Dose: 300 mls/hr Documented by: Remdesivir 100 mg/ Sodium (Chloride) 100 mls @ 100 mls/hr IV Q24H [facility] Stop: 04/06/21 17:14 Metoprolol Succinate (Metoprolol Succinate 25 Mg Tab.Er) 25 mg PO DAILY [facility] Last Admin: 04/03/21 09:01 Dose: 25 mg Documented by: Ondansetron HCl (Ondansetron 4 Mg/2 Ml Sdv) 4 mg IVPUSH Q4H PRN PRN Reason: Nausea/Vomiting Ramipril (Ramipril 2.5 Mg Cap) 5 mg PO DAILY [facility] Last Admin: 04/03/21 09:00 Dose: 5 mg Documented by: Sodium Chloride (Sodium Chloride 0.9% 10 Ml Syringe) 10 ml FLUSH ASDIRECTED PRN PRN Reason: Keep Vein Open Last Admin: 04/02/21 12:40 Dose: 10 ml Documented by: Sodium Chloride (Sodium Chloride 0.9% 2.5 Ml Syringe) 2.5 ml FLUSH ASDIRECTED PRN PRN Reason: Keep Vein Open Last Admin: 04/02/21 12:40 Dose: 2.5 ml Documented by: Discontinued Medications Albuterol/Ipratropium (Albuterol/Ipratropium 4 Gm Inhalation Arthur) 0 gm INH Q4H PRN PRN Reason: Dyspnea Sodium Chloride (Normal Saline) 1,000 mls @ 999 mls/hr IV .BOLUS ONE Stop: 04/02/21 13:24 Last Admin: 04/02/21 12:40 Dose: 999 mls/hr Documented by: Remdesivir 200 mg/ Sodium (Chloride) 250 mls @ 250 mls/hr IV ONETIME ONE Stop: 04/02/21 17:29 Last Admin: 04/02/21 17:40 Dose: 250 mls/hr Documented by: - Exam Quality Assessment: Supplemental Oxygen General: Alert, Oriented Neck: Supple Lungs: Normal Respiratory Effort, Decreased Breath Sounds, Crackles Cardiovascular: Regular Rate, Regular Rhythm GI/Abdominal Exam: Normal Bowel Sounds, Soft, Non-Tender - Patient Data Lab Results Last 24 hrs: Laboratory Results - last 24 hr 04/03/21 04/03/21 Range/Units 05:35 05:35 WBC 3.70 L (4.0-11.0) K/uL RBC 4.63 (4.50-5.90) M/uL Hgb 14.3 (13.0-17.0) g/dL Hct 42.2 (38.0-50.0) % MCV 91.1 (80.0-98.0) fL MCH 30.9 (27.0-32.0) pg MCHC 33.9 (31.0-37.0) g/dL RDW Std Deviation 45.7 (28.0-62.0) fl RDW Coeff of Dianna 14 (11.0-15.0) % Plt Count 189 (150-400) K/uL MPV 10.50 (7.40-12.00) fL Neut % (Auto) 59.7 (48.0-80.0) % Lymph % (Auto) 29.2 (16.0-40.0) % Leon % (Auto) 10.8 (0.0-15.0) % Eos % (Auto) 0.0 (0.0-7.0) % Baso % (Auto) 0.3 (0.0-1.5) % Neut # (Auto) 2.2 (1.4-5.7) K/uL Lymph # (Auto) 1.1 (0.6-2.4) K/uL Leon # (Auto) 0.4 (0.0-0.8) K/uL Eos # (Auto) 0.0 (0.0-0.7) K/uL Baso # (Auto) 0.0 (0.0-0.1) K/uL Nucleated RBC % 0.0 /100WBC Nucleated RBCs # 0 K/uL Sodium 139 (136-148) mmol/L Potassium 4.9 (3.5-5.1) mmol/L Chloride 105 (98-107) mmol/L Carbon Dioxide 27.2 (21.0-32.0) mmol/L BUN 13 (7.0-18.0) mg/dL Creatinine 1.0 (0.8-1.3) mg/dL Est Cr Clr Drug Dosing 69.55 mL/min Estimated GFR (MDRD) > 60.0 ml/min Glucose 134 H (74-106) mg/dL Calcium 8.5 (8.5-10.1) mg/dL Phosphorus 4.8 H (2.6-4.7) mg/dL Magnesium 2.3 (1.8-2.4) mg/dL Total Bilirubin 0.4 (0.2-1.0) mg/dL AST 40 H (15-37) IU/L ALT 51 (14-63) IU/L Alkaline Phosphatase 85 (46-116) U/L Total Protein 6.6 (6.4-8.2) g/dL Albumin 3.1 L (3.4-5.0) g/dL Globulin 3.5 (2.6-4.0) g/dL Albumin/Globulin Ratio 0.9 (0.9-1.6) Result Diagrams: 04/03/21 05:35 04/03/21 05:35 Sepsis Event Note - Evaluation Sepsis Screening Result: No Definite Risk - Focused Exam Vital Signs: Vital Signs Temp Temp Pulse Pulse Resp BP BP 04/03/21 12:00 36.2 C 65 18 123/71 04/03/21 09:01 68 139/65 04/03/21 09:00 139/65 04/03/21 08:58 36.0 C L 66 19 139/65 04/03/21 04:46 36.1 C 55 L 19 Pulse Ox 04/03/21 12:00 90 L 04/03/21 09:01 04/03/21 09:00 04/03/21 08:58 90 L 04/03/21 04:46 93 L - Problem List & Annotations (1) Hx of CABG SNOMED Code(s): 457759133, 110686338 Code(s): Z95.1 - PRESENCE OF AORTOCORONARY BYPASS GRAFT Status: Acute Current Visit: Yes (2) Hypertension SNOMED Code(s): 17333062 Code(s): I10 - ESSENTIAL (PRIMARY) HYPERTENSION Status: Acute Current Visit: Yes (3) Hyperlipidemia SNOMED Code(s): 69992252 Code(s): E78.5 - HYPERLIPIDEMIA, UNSPECIFIED Status: Acute Current Visit: Yes (4) S/P TURP SNOMED Code(s): 373312424, 79540697, 336606234 Code(s): Z90.79 - ACQUIRED ABSENCE OF OTHER GENITAL ORGAN(S) Status: Acute Current Visit: Yes (5) COVID-19 SNOMED Code(s): 330935087 Code(s): U07.1 - COVID-19 Status: Acute Current Visit: Yes (6) Hypoxia SNOMED Code(s): 028151074 Code(s): R09.02 - HYPOXEMIA Status: Acute Current Visit: Yes - Problem List Review Problem List Initiated/Reviewed/Updated: Yes - My Orders Last 24 Hours: My Active Orders 04/02/21 Dinner Heart Healthy Diet [DIET] 04/02/21 16:10 Ambulate [RC] ASDIRECTED Acetaminophen [TylenoL] 650 mg PO Q4H PRN Albuterol/Ipratropium [DuoNeb 3.0-0.5 MG/3 ML] 3 ml NEB Q4HRRT PRN Ondansetron [Zofran] 4 mg IVPUSH Q4H PRN 04/02/21 16:11 Antiembolic Devices [RC] PER UNIT ROUTINE Oxygen Therapy [RC] PRN VTE/DVT Education [RC] PER UNIT ROUTINE Vital Signs [RC] Q4H Sequential Compression Device [OM.PC] Per Unit Routine 04/02/21 16:12 RT Aerosol Therapy [RC] ASDIRECTED 04/02/21 16:14 RT Post Treatment Assessment [RC] Click to Edit RT Pre-Treatment Assessment [RC] Click to Edit 04/02/21 16:15 Albuterol/Ipratropium [Combivent Respimat] See Dose Instructions INH Q4H Enoxaparin [Lovenox] 40 mg SUBCUT Q24H dexAMETHasone 6 mg PO DAILY 04/02/21 17:54 Telemetry Monitoring [Cardiac Monitoring] [RC] Q8H 04/03/21 09:00 Aspirin [Ecotrin] 650 mg PO DAILY Metoprolol Succinate [Toprol XL] 25 mg PO DAILY Pantoprazole [ProTONIX IV] 40 mg Sodium Chloride 0.9% [Normal Saline] 10 ml IV DAILY ramipriL [Altace] 5 mg PO DAILY 04/03/21 16:15 Remdesivir 100 mg Sodium Chloride 0.9% [Normal Saline] 100 ml IV Q24H 04/03/21 21:00 atorvaSTATin [Lipitor] 20 mg PO BEDTIME - Plan Plan:: 70-year-old old male admitted for acute hypoxic respiratory failure secondary to Covid Currently requiring 3 L of nasal cannula cont remdesivir, dexamethasone, Combivent, Lovenox Continue supportive care as needed Patient was able to tolerate his breakfast Resume home meds as appropriate DC in 1 to 2 days based on patient's hospital course
[2021-04-03] MEDS: Enoxaparin 40 MG/0.4 ML Syringe SUBCUT SCH (15:58)
[2021-04-03] MEDS: REMDESIVIR 100 MG in Sodium Chloride 0.9% 100 ML IV SCH (15:58)
[2021-04-03] MEDS: guaiFENesin/Dextromethorphan 100-10 MG/5 ML Soln 10 ML Cup PO PRN (16:05)
[2021-04-03] MEDS: atorvaSTATin 20 MG Tab PO SCH (20:09)
[2021-04-04] MEDS: Albuterol/Ipratropium 4 GM Inhalation Spray INH SCH ×6 (00:53→22:10)
[2021-04-04] MEDS: guaiFENesin/Dextromethorphan 100-10 MG/5 ML Soln 10 ML Cup PO PRN ×2 (00:54→22:10)
[2021-04-04 06:38] LABS: BLOOD UREA NITROGEN,BUN 24 mg/dL (7.0-18.0); CARBON DIOXIDE,CO2 22.3 mmol/L (21.0-32.0); CHLORIDE,CL 105 mmol/L (98-107); GLUCOSE RANDOM 137 mg/dL (74-106); POTASSIUM,K 4.5 mmol/L (3.5-5.1); SODIUM,NA 137 mmol/L (136-148)
[2021-04-04] MEDS: Metoprolol Succinate 25 MG Tab.ER PO SCH (08:35)
[2021-04-04] MEDS: Aspirin 81 MG Tab.EC PO SCH (08:35)
[2021-04-04] MEDS: Pantoprazole 40 MG in Sodium Chloride 0.9% 10 ML IV SCH (08:35)
[2021-04-04] MEDS: Dexamethasone 4 MG Tab PO SCH (08:35)
--- NOTE | 2021-04-04 15:59 | PCM.PN ---
- General Info Date of Service: 04/04/21 Admission Dx/Problem (Free Text): Admission Diagnosis/Problem Admission Diagnosis/Problem Hypoxia Subjective Update: Patient seen at bedside, no active concerns, seen ambulating in the room on - Review of Systems General: Denies: Fever, Weakness Pulmonary: Reports: Shortness of Breath, Cough. Denies: Pleuritic Chest Pain, Sputum Gastrointestinal: Reports: Constipation. Denies: Abdominal Pain, Decreased Appetite Genitourinary: Denies: Dysuria, Frequency, Burning Musculoskeletal: Denies: Neck Pain, Shoulder Pain, Arm Pain Skin: Denies: Cyanosis, Jaundice, Mottled - Patient Data Vitals - Most Recent: Last Vital Signs Temp 36.3 C 04/04/21 12:00 Pulse 52 L 04/04/21 12:00 Resp 18 04/04/21 12:00 BP 101/71 04/04/21 12:00 Pulse Ox 90 L 04/04/21 12:00 Weight - Most Recent: 102.784 kg I&O - Last 24 Hours: Intake & Output 04/04/21 04/04/21 04/04/21 06:59 14:59 22:59 Intake Total 900 Output Total 1150 Balance -250 Lab Results Last 24 Hours: Laboratory Results - last 24 hr 04/04/21 04/04/21 Range/Units 05:20 05:20 WBC 7.01 (4.0-11.0) K/uL RBC 4.52 (4.50-5.90) M/uL Hgb 13.8 (13.0-17.0) g/dL Hct 41.0 (38.0-50.0) % MCV 90.7 (80.0-98.0) fL MCH 30.5 (27.0-32.0) pg MCHC 33.7 (31.0-37.0) g/dL RDW Std Deviation 46.2 (28.0-62.0) fl RDW Coeff of Dianna 14 (11.0-15.0) % Plt Count 221 (150-400) K/uL MPV 11.00 (7.40-12.00) fL Neut % (Auto) 69.5 (48.0-80.0) % Lymph % (Auto) 18.4 (16.0-40.0) % [place] % (Auto) 12.0 (0.0-15.0) % Eos % (Auto) 0.0 (0.0-7.0) % Baso % (Auto) 0.1 (0.0-1.5) % Neut # (Auto) 4.9 (1.4-5.7) K/uL Lymph # (Auto) 1.3 (0.6-2.4) K/uL [place] # (Auto) 0.8 (0.0-0.8) K/uL Eos # (Auto) 0.0 (0.0-0.7) K/uL Baso # (Auto) 0.0 (0.0-0.1) K/uL Nucleated RBC % 0.0 /100WBC Nucleated RBCs # 0 K/uL Sodium 137 (136-148) mmol/L Potassium 4.5 (3.5-5.1) mmol/L Chloride 105 (98-107) mmol/L Carbon Dioxide 22.3 (21.0-32.0) mmol/L BUN 24 H (7.0-18.0) mg/dL Creatinine 1.0 (0.8-1.3) mg/dL Est Cr Clr Drug Dosing 69.55 mL/min Estimated GFR (MDRD) > 60.0 ml/min Glucose 137 H (74-106) mg/dL Calcium 8.4 L (8.5-10.1) mg/dL Total Bilirubin 0.4 (0.2-1.0) mg/dL AST 46 H (15-37) IU/L ALT 60 (14-63) IU/L Alkaline Phosphatase 78 (46-116) U/L Total Protein 6.2 L (6.4-8.2) g/dL Albumin 3.0 L (3.4-5.0) g/dL Globulin 3.2 (2.6-4.0) g/dL Albumin/Globulin Ratio 0.9 (0.9-1.6) Med Orders - Current: Current Medications Acetaminophen (Acetaminophen 325 Mg Tab) 650 mg PO Q4H PRN PRN Reason: Pain (Mild 1-3)/fever Albuterol/Ipratropium (Albuterol/Ipratropium 3.0-0.5 Mg/3 Ml Neb Soln) 3 ml NEB Q4HRRT PRN PRN Reason: Shortness Of Breath/wheezing Albuterol/Ipratropium (Albuterol/Ipratropium 4 Gm Inhalation [place]) 0 gm INH Q4HRRT [facility] Last Admin: 04/04/21 13:41 Dose: 2 puff Documented by: Aspirin (Aspirin 81 Mg Tab.Ec) 81 mg PO DAILY [facility] Last Admin: 04/04/21 08:35 Dose: 81 mg Documented by: Atorvastatin Calcium (Atorvastatin 20 Mg Tab) 20 mg PO BEDTIME [facility] Last Admin: 04/03/21 20:09 Dose: 20 mg Documented by: Dexamethasone (Dexamethasone 4 Mg Tab) 6 mg PO DAILY [facility] Last Admin: 04/04/21 08:35 Dose: 6 mg Documented by: Enoxaparin Sodium (Enoxaparin 40 Mg/0.4 Ml Syringe) 40 mg SUBCUT Q24H [facility] Last Admin: 04/03/21 15:58 Dose: 40 mg Documented by: Guaifenesin/Dextromethorphan (Guaifenesin/Dextromethorphan 100-10 Mg/5 Ml Soln 10 Ml Cup) 10 ml PO Q4H PRN PRN Reason: Cough Last Admin: 04/04/21 00:54 Dose: 10 ml Documented by: Pantoprazole Sodium 40 mg/ (Sodium Chloride) 10 mls @ 300 mls/hr IV DAILY [facility] Last Admin: 04/04/21 08:35 Dose: 300 mls/hr Documented by: Remdesivir 100 mg/ Sodium (Chloride) 100 mls @ 100 mls/hr IV Q24H [facility] Stop: 04/06/21 17:14 Last Admin: 04/03/21 15:58 Dose: 100 mls/hr Documented by: Metoprolol Succinate (Metoprolol Succinate 25 Mg Tab.Er) 25 mg PO DAILY [facility] Last Admin: 04/04/21 08:35 Dose: 25 mg Documented by: Ondansetron HCl (Ondansetron 4 Mg/2 Ml Sdv) 4 mg IVPUSH Q4H PRN PRN Reason: Nausea/Vomiting Ramipril (Ramipril 2.5 Mg Cap) 5 mg PO DAILY [facility] Last Admin: 04/04/21 08:34 Dose: 5 mg Documented by: Sodium Chloride (Sodium Chloride 0.9% 10 Ml Syringe) 10 ml FLUSH ASDIRECTED PRN PRN Reason: Keep Vein Open Last Admin: 04/02/21 12:40 Dose: 10 ml Documented by: Sodium Chloride (Sodium Chloride 0.9% 2.5 Ml Syringe) 2.5 ml FLUSH ASDIRECTED PRN PRN Reason: Keep Vein Open Last Admin: 04/02/21 12:40 Dose: 2.5 ml Documented by: Discontinued Medications Albuterol/Ipratropium (Albuterol/Ipratropium 4 Gm Inhalation [place]) 0 gm INH Q4H PRN PRN Reason: Dyspnea Albuterol/Ipratropium (Albuterol/Ipratropium 4 Gm Inhalation [place]) 0 gm INH Q4H [facility] Last Admin: 04/04/21 05:06 Dose: 2 puff Documented by: Aspirin (Aspirin 325 Mg Tab.Ec) 650 mg PO DAILY [facility] Last Admin: 04/03/21 08:59 Dose: 650 mg Documented by: Sodium Chloride (Normal Saline) 1,000 mls @ 999 mls/hr IV .BOLUS ONE Stop: 04/02/21 13:24 Last Admin: 04/02/21 12:40 Dose: 999 mls/hr Documented by: Remdesivir 200 mg/ Sodium (Chloride) 250 mls @ 250 mls/hr IV ONETIME ONE Stop: 04/02/21 17:29 Last Admin: 04/02/21 17:40 Dose: 250 mls/hr Documented by: - Exam Quality Assessment: Supplemental Oxygen General: Alert, Oriented Lungs: Normal Respiratory Effort, Decreased Breath Sounds, Crackles Cardiovascular: Regular Rate, Regular Rhythm GI/Abdominal Exam: Normal Bowel Sounds, Soft, Non-Tender - Patient Data Lab Results Last 24 hrs: Laboratory Results - last 24 hr 04/04/21 04/04/21 Range/Units 05:20 05:20 WBC 7.01 (4.0-11.0) K/uL RBC 4.52 (4.50-5.90) M/uL Hgb 13.8 (13.0-17.0) g/dL Hct 41.0 (38.0-50.0) % MCV 90.7 (80.0-98.0) fL MCH 30.5 (27.0-32.0) pg MCHC 33.7 (31.0-37.0) g/dL RDW Std Deviation 46.2 (28.0-62.0) fl RDW Coeff of Dianna 14 (11.0-15.0) % Plt Count 221 (150-400) K/uL MPV 11.00 (7.40-12.00) fL Neut % (Auto) 69.5 (48.0-80.0) % Lymph % (Auto) 18.4 (16.0-40.0) % [place] % (Auto) 12.0 (0.0-15.0) % Eos % (Auto) 0.0 (0.0-7.0) % Baso % (Auto) 0.1 (0.0-1.5) % Neut # (Auto) 4.9 (1.4-5.7) K/uL Lymph # (Auto) 1.3 (0.6-2.4) K/uL [place] # (Auto) 0.8 (0.0-0.8) K/uL Eos # (Auto) 0.0 (0.0-0.7) K/uL Baso # (Auto) 0.0 (0.0-0.1) K/uL Nucleated RBC % 0.0 /100WBC Nucleated RBCs # 0 K/uL Sodium 137 (136-148) mmol/L Potassium 4.5 (3.5-5.1) mmol/L Chloride 105 (98-107) mmol/L Carbon Dioxide 22.3 (21.0-32.0) mmol/L BUN 24 H (7.0-18.0) mg/dL Creatinine 1.0 (0.8-1.3) mg/dL Est Cr Clr Drug Dosing 69.55 mL/min Estimated GFR (MDRD) > 60.0 ml/min Glucose 137 H (74-106) mg/dL Calcium 8.4 L (8.5-10.1) mg/dL Total Bilirubin 0.4 (0.2-1.0) mg/dL AST 46 H (15-37) IU/L ALT 60 (14-63) IU/L Alkaline Phosphatase 78 (46-116) U/L Total Protein 6.2 L (6.4-8.2) g/dL Albumin 3.0 L (3.4-5.0) g/dL Globulin 3.2 (2.6-4.0) g/dL Albumin/Globulin Ratio 0.9 (0.9-1.6) Result Diagrams: 04/04/21 05:20 04/04/21 05:20 Sepsis Event Note - Evaluation Sepsis Screening Result: No Definite Risk - Focused Exam Vital Signs: Vital Signs Temp Pulse Pulse Resp BP BP Pulse Ox 04/04/21 12:00 36.3 C 52 L 18 101/71 90 L 04/04/21 08:35 63 114/68 04/04/21 08:34 114/68 04/04/21 08:32 36.2 C 58 L 18 114/68 90 L 04/04/21 05:03 36.3 C 54 L 19 105/68 91 L - Problem List & Annotations (1) Hx of CABG SNOMED Code(s): 184299926, 757137070 Code(s): Z95.1 - PRESENCE OF AORTOCORONARY BYPASS GRAFT Status: Acute Current Visit: Yes (2) Hypertension SNOMED Code(s): 02287497 Code(s): I10 - ESSENTIAL (PRIMARY) HYPERTENSION Status: Acute Current Visit: Yes (3) Hyperlipidemia SNOMED Code(s): 11320632 Code(s): E78.5 - HYPERLIPIDEMIA, UNSPECIFIED Status: Acute Current Visit: Yes (4) S/P TURP SNOMED Code(s): 533834189, 03779622, 856807770 Code(s): Z90.79 - ACQUIRED ABSENCE OF OTHER GENITAL ORGAN(S) Status: Acute Current Visit: Yes (5) COVID-19 SNOMED Code(s): 717609525 Code(s): U07.1 - COVID-19 Status: Acute Current Visit: Yes (6) Hypoxia SNOMED Code(s): 780700283 Code(s): R09.02 - HYPOXEMIA Status: Acute Current Visit: Yes - Problem List Review Problem List Initiated/Reviewed/Updated: Yes - My Orders Last 24 Hours: My Active Orders 04/03/21 15:36 Dextromethorphan/guaiFENesin [Robitussin DM] 10 ml PO Q4H PRN 04/03/21 16:15 Remdesivir 100 mg Sodium Chloride 0.9% [Normal Saline] 100 ml IV Q24H 04/03/21 21:00 atorvaSTATin [Lipitor] 20 mg PO BEDTIME 04/04/21 09:00 Aspirin [Halfprin] 81 mg PO DAILY 08/31/21 10:00 Albuterol/Ipratropium [Combivent Respimat] 0 gm INH Q4HRRT - Plan Plan:: 70-year-old old male admitted for acute hypoxic respiratory failure secondary to Covid Currently requiring 3 L of nasal cannula cont remdesivir, dexamethasone, Combivent, Lovenox Continue supportive care as needed Patient was able to tolerate his breakfast Resume home meds as appropriate DC in 1 to 2 days based on patient's hospital course
[2021-04-04] MEDS: Enoxaparin 40 MG/0.4 ML Syringe SUBCUT SCH (16:27)
[2021-04-04] MEDS: REMDESIVIR 100 MG in Sodium Chloride 0.9% 100 ML IV SCH (16:27)
[2021-04-04] MEDS: atorvaSTATin 20 MG Tab PO SCH (20:31)
[2021-04-05] MEDS: Albuterol/Ipratropium 4 GM Inhalation Spray INH SCH ×6 (03:07→21:35)
[2021-04-05 06:41] LABS: BLOOD UREA NITROGEN,BUN 22 mg/dL (7.0-18.0); CHLORIDE,CL 106 mmol/L (98-107); GLUCOSE RANDOM 129 mg/dL (74-106); POTASSIUM,K 4.8 mmol/L (3.5-5.1); SODIUM,NA 139 mmol/L (136-148)
[2021-04-05] MEDS: Aspirin 81 MG Tab.EC PO SCH (07:59)
[2021-04-05] MEDS: Dexamethasone 4 MG Tab PO SCH (08:00)
[2021-04-05] MEDS: Metoprolol Succinate 25 MG Tab.ER PO SCH (08:01)
[2021-04-05] MEDS: Pantoprazole 40 MG in Sodium Chloride 0.9% 10 ML IV SCH (08:03)
--- NOTE | 2021-04-05 14:07 | PCM.PN ---
- General Info Date of Service: 04/05/21 Admission Dx/Problem (Free Text): Admission Diagnosis/Problem Admission Diagnosis/Problem Hypoxia Subjective Update: Patient seen at bedside, no active concerns, seen ambulating in the room on, on 3Lts NC Functional Status: Reports: Tolerating Diet, Ambulating, Urinating - Review of Systems General: Denies: Fever, Weakness, Fatigue Pulmonary: Reports: Shortness of Breath. Denies: Pleuritic Chest Pain, Cough Cardiovascular: Reports: Dyspnea on Exertion Gastrointestinal: Denies: Abdominal Pain, Constipation, Decreased Appetite Genitourinary: Denies: Dysuria, Frequency, Burning Musculoskeletal: Denies: Neck Pain, Shoulder Pain, Arm Pain Skin: Denies: Cyanosis, Jaundice, Mottled Neurological: Denies: Confusion, Dizziness, Headache - Patient Data Vitals - Most Recent: Last Vital Signs Temp 36.4 C 04/05/21 12:00 Pulse 59 L 04/05/21 12:00 Resp 18 04/05/21 12:00 BP 118/71 04/05/21 12:00 Pulse Ox 90 L 04/05/21 12:00 Weight - Most Recent: 102.784 kg I&O - Last 24 Hours: Intake & Output 04/04/21 04/05/21 04/05/21 22:59 06:59 14:59 Intake Total 800 1000 Output Total 300 850 Balance 500 150 Lab Results Last 24 Hours: Laboratory Results - last 24 hr 04/05/21 04/05/21 Range/Units 05:58 05:58 WBC 9.13 (4.0-11.0) K/uL RBC 4.48 L (4.50-5.90) M/uL Hgb 14.0 (13.0-17.0) g/dL Hct 40.6 (38.0-50.0) % MCV 90.6 (80.0-98.0) fL MCH 31.3 (27.0-32.0) pg MCHC 34.5 (31.0-37.0) g/dL RDW Std Deviation 45.6 (28.0-62.0) fl RDW Coeff of Dianna 14 (11.0-15.0) % Plt Count 246 (150-400) K/uL MPV 10.60 (7.40-12.00) fL Neut % (Auto) 77.3 (48.0-80.0) % Lymph % (Auto) 12.2 L (16.0-40.0) % [place] % (Auto) 10.4 (0.0-15.0) % Eos % (Auto) 0.0 (0.0-7.0) % Baso % (Auto) 0.1 (0.0-1.5) % Neut # (Auto) 7.1 H (1.4-5.7) K/uL Lymph # (Auto) 1.1 (0.6-2.4) K/uL [place] # (Auto) 1.0 H (0.0-0.8) K/uL Eos # (Auto) 0.0 (0.0-0.7) K/uL Baso # (Auto) 0.0 (0.0-0.1) K/uL Nucleated RBC % 0.0 /100WBC Nucleated RBCs # 0 K/uL Sodium 139 (136-148) mmol/L Potassium 4.8 (3.5-5.1) mmol/L Chloride 106 (98-107) mmol/L Carbon Dioxide 24.0 (21.0-32.0) mmol/L BUN 22 H (7.0-18.0) mg/dL Creatinine 1.0 (0.8-1.3) mg/dL Est Cr Clr Drug Dosing 69.55 mL/min Estimated GFR (MDRD) > 60.0 ml/min Glucose 129 H (74-106) mg/dL Calcium 8.3 L (8.5-10.1) mg/dL Total Bilirubin 0.4 (0.2-1.0) mg/dL AST 47 H (15-37) IU/L ALT 73 H (14-63) IU/L Alkaline Phosphatase 74 (46-116) U/L Total Protein 6.1 L (6.4-8.2) g/dL Albumin 3.0 L (3.4-5.0) g/dL Globulin 3.1 (2.6-4.0) g/dL Albumin/Globulin Ratio 1.0 (0.9-1.6) Med Orders - Current: Current Medications Acetaminophen (Acetaminophen 325 Mg Tab) 650 mg PO Q4H PRN PRN Reason: Pain (Mild 1-3)/fever Albuterol/Ipratropium (Albuterol/Ipratropium 3.0-0.5 Mg/3 Ml Neb Soln) 3 ml NEB Q4HRRT PRN PRN Reason: Shortness Of Breath/wheezing Albuterol/Ipratropium (Albuterol/Ipratropium 4 Gm Inhalation [place]) 0 gm INH Q4HRRT [facility] Last Admin: 04/05/21 13:35 Dose: 2 puff Documented by: Aspirin (Aspirin 81 Mg Tab.Ec) 81 mg PO DAILY [facility] Last Admin: 04/05/21 07:59 Dose: 81 mg Documented by: Atorvastatin Calcium (Atorvastatin 20 Mg Tab) 20 mg PO BEDTIME [facility] Last Admin: 04/04/21 20:31 Dose: 20 mg Documented by: Dexamethasone (Dexamethasone 4 Mg Tab) 6 mg PO DAILY [facility] Last Admin: 04/05/21 08:00 Dose: 6 mg Documented by: Enoxaparin Sodium (Enoxaparin 40 Mg/0.4 Ml Syringe) 40 mg SUBCUT Q24H [facility] Last Admin: 04/04/21 16:27 Dose: 40 mg Documented by: Guaifenesin/Dextromethorphan (Guaifenesin/Dextromethorphan 100-10 Mg/5 Ml Soln 10 Ml Cup) 10 ml PO Q4H PRN PRN Reason: Cough Last Admin: 04/04/21 22:10 Dose: 10 ml Documented by: Pantoprazole Sodium 40 mg/ (Sodium Chloride) 10 mls @ 300 mls/hr IV DAILY [facility] Last Admin: 04/05/21 08:03 Dose: 300 mls/hr Documented by: Remdesivir 100 mg/ Sodium (Chloride) 100 mls @ 100 mls/hr IV Q24H [facility] Stop: 04/06/21 17:14 Last Admin: 04/04/21 16:27 Dose: 100 mls/hr Documented by: Metoprolol Succinate (Metoprolol Succinate 25 Mg Tab.Er) 25 mg PO DAILY [facility] Last Admin: 04/05/21 08:01 Dose: 25 mg Documented by: Ondansetron HCl (Ondansetron 4 Mg/2 Ml Sdv) 4 mg IVPUSH Q4H PRN PRN Reason: Nausea/Vomiting Ramipril (Ramipril 2.5 Mg Cap) 5 mg PO DAILY [facility] Last Admin: 04/05/21 08:01 Dose: 5 mg Documented by: Sodium Chloride (Sodium Chloride 0.9% 10 Ml Syringe) 10 ml FLUSH ASDIRECTED PRN PRN Reason: Keep Vein Open Last Admin: 04/02/21 12:40 Dose: 10 ml Documented by: Sodium Chloride (Sodium Chloride 0.9% 2.5 Ml Syringe) 2.5 ml FLUSH ASDIRECTED PRN PRN Reason: Keep Vein Open Last Admin: 04/02/21 12:40 Dose: 2.5 ml Documented by: Discontinued Medications Albuterol/Ipratropium (Albuterol/Ipratropium 4 Gm Inhalation [place]) 0 gm INH Q4H PRN PRN Reason: Dyspnea Albuterol/Ipratropium (Albuterol/Ipratropium 4 Gm Inhalation [place]) 0 gm INH Q4H [facility] Last Admin: 04/04/21 05:06 Dose: 2 puff Documented by: Aspirin (Aspirin 325 Mg Tab.Ec) 650 mg PO DAILY [facility] Last Admin: 04/03/21 08:59 Dose: 650 mg Documented by: Sodium Chloride (Normal Saline) 1,000 mls @ 999 mls/hr IV .BOLUS ONE Stop: 04/02/21 13:24 Last Admin: 04/02/21 12:40 Dose: 999 mls/hr Documented by: Remdesivir 200 mg/ Sodium (Chloride) 250 mls @ 250 mls/hr IV ONETIME ONE Stop: 04/02/21 17:29 Last Admin: 04/02/21 17:40 Dose: 250 mls/hr Documented by: - Exam Quality Assessment: Supplemental Oxygen General: Alert, Oriented Lungs: Normal Respiratory Effort, Decreased Breath Sounds Cardiovascular: Regular Rate, Regular Rhythm GI/Abdominal Exam: Normal Bowel Sounds, Soft, Non-Tender Extremities: Normal Inspection, Normal Range of Motion - Patient Data Lab Results Last 24 hrs: Laboratory Results - last 24 hr 04/05/21 04/05/21 Range/Units 05:58 05:58 WBC 9.13 (4.0-11.0) K/uL RBC 4.48 L (4.50-5.90) M/uL Hgb 14.0 (13.0-17.0) g/dL Hct 40.6 (38.0-50.0) % MCV 90.6 (80.0-98.0) fL MCH 31.3 (27.0-32.0) pg MCHC 34.5 (31.0-37.0) g/dL RDW Std Deviation 45.6 (28.0-62.0) fl RDW Coeff of Dianna 14 (11.0-15.0) % Plt Count 246 (150-400) K/uL MPV 10.60 (7.40-12.00) fL Neut % (Auto) 77.3 (48.0-80.0) % Lymph % (Auto) 12.2 L (16.0-40.0) % [place] % (Auto) 10.4 (0.0-15.0) % Eos % (Auto) 0.0 (0.0-7.0) % Baso % (Auto) 0.1 (0.0-1.5) % Neut # (Auto) 7.1 H (1.4-5.7) K/uL Lymph # (Auto) 1.1 (0.6-2.4) K/uL [place] # (Auto) 1.0 H (0.0-0.8) K/uL Eos # (Auto) 0.0 (0.0-0.7) K/uL Baso # (Auto) 0.0 (0.0-0.1) K/uL Nucleated RBC % 0.0 /100WBC Nucleated RBCs # 0 K/uL Sodium 139 (136-148) mmol/L Potassium 4.8 (3.5-5.1) mmol/L Chloride 106 (98-107) mmol/L Carbon Dioxide 24.0 (21.0-32.0) mmol/L BUN 22 H (7.0-18.0) mg/dL Creatinine 1.0 (0.8-1.3) mg/dL Est Cr Clr Drug Dosing 69.55 mL/min Estimated GFR (MDRD) > 60.0 ml/min Glucose 129 H (74-106) mg/dL Calcium 8.3 L (8.5-10.1) mg/dL Total Bilirubin 0.4 (0.2-1.0) mg/dL AST 47 H (15-37) IU/L ALT 73 H (14-63) IU/L Alkaline Phosphatase 74 (46-116) U/L Total Protein 6.1 L (6.4-8.2) g/dL Albumin 3.0 L (3.4-5.0) g/dL Globulin 3.1 (2.6-4.0) g/dL Albumin/Globulin Ratio 1.0 (0.9-1.6) Result Diagrams: 04/05/21 05:58 04/05/21 05:58 Sepsis Event Note - Evaluation Sepsis Screening Result: No Definite Risk - Focused Exam Vital Signs: Vital Signs Temp Pulse Pulse Resp BP BP Pulse Ox 04/05/21 12:00 36.4 C 59 L 18 118/71 90 L 04/05/21 08:08 36.1 C 61 20 113/57 L 90 L 04/05/21 08:01 61 113/57 L 04/05/21 03:07 36.3 C 56 L 20 123/80 91 L - Problem List & Annotations (1) Hx of CABG SNOMED Code(s): 874993492, 882813438 Code(s): Z95.1 - PRESENCE OF AORTOCORONARY BYPASS GRAFT Status: Acute Current Visit: Yes (2) Hypertension SNOMED Code(s): 15583991 Code(s): I10 - ESSENTIAL (PRIMARY) HYPERTENSION Status: Acute Current Visit: Yes (3) Hyperlipidemia SNOMED Code(s): 00598236 Code(s): E78.5 - HYPERLIPIDEMIA, UNSPECIFIED Status: Acute Current Visit: Yes (4) S/P TURP SNOMED Code(s): 062151426, 76657676, 020305445 Code(s): Z90.79 - ACQUIRED ABSENCE OF OTHER GENITAL ORGAN(S) Status: Acute Current Visit: Yes (5) COVID-19 SNOMED Code(s): 010097281 Code(s): U07.1 - COVID-19 Status: Acute Current Visit: Yes (6) Hypoxia SNOMED Code(s): 950743746 Code(s): R09.02 - HYPOXEMIA Status: Acute Current Visit: Yes - Problem List Review Problem List Initiated/Reviewed/Updated: Yes - Plan Plan:: 70-year-old old male admitted for acute hypoxic respiratory failure secondary to Covid Currently requiring 3 L of nasal cannula cont remdesivir, dexamethasone, Combivent, Lovenox Continue supportive care as needed Patient was able to tolerate his breakfast Resume home meds as appropriate possible dc anali with home oxygen
[2021-04-05] MEDS: Enoxaparin 40 MG/0.4 ML Syringe SUBCUT SCH (16:17)
[2021-04-05] MEDS: REMDESIVIR 100 MG in Sodium Chloride 0.9% 100 ML IV SCH (16:18)
[2021-04-05] MEDS: atorvaSTATin 20 MG Tab PO SCH (21:34)
[2021-04-06] MEDS: Albuterol/Ipratropium 4 GM Inhalation Spray INH SCH ×4 (02:13→14:01)
[2021-04-06 06:42] LABS: BLOOD UREA NITROGEN,BUN 20 mg/dL (7.0-18.0); CARBON DIOXIDE,CO2 23.7 mmol/L (21.0-32.0); CHLORIDE,CL 106 mmol/L (98-107); GLUCOSE RANDOM 126 mg/dL (74-106); POTASSIUM,K 4.6 mmol/L (3.5-5.1); SODIUM,NA 139 mmol/L (136-148)
[2021-04-06] MEDS: Metoprolol Succinate 25 MG Tab.ER PO SCH (09:27)
[2021-04-06] MEDS: Aspirin 81 MG Tab.EC PO SCH (09:27)
[2021-04-06] MEDS: Dexamethasone 4 MG Tab PO SCH (09:29)
[2021-04-06] MEDS: Pantoprazole 40 MG in Sodium Chloride 0.9% 10 ML IV SCH (09:30)
[2021-04-06] MEDS ORDERED: REMDESIVIR 100 MG in Sodium Chloride 0.9% 100 ML IV SCH (11:00)
--- NOTE | 2021-04-06 11:12 | PCM.DCSUM1 ---
Discharge Summary - Discharge Data Discharge Disposition: Home, Self-Care 01 Condition: Stable - Referral to Home Health Primary Care Physician: Enrico Lord MD - Discharge Diagnosis/Problem(s) (1) Hx of CABG SNOMED Code(s): 763103077, 060703217 ICD Code: Z95.1 - PRESENCE OF AORTOCORONARY BYPASS GRAFT Status: Acute Current Visit: Yes (2) Hypertension SNOMED Code(s): 58532228 ICD Code: I10 - ESSENTIAL (PRIMARY) HYPERTENSION Status: Acute Current Visit: Yes (3) Hyperlipidemia SNOMED Code(s): 02304173 ICD Code: E78.5 - HYPERLIPIDEMIA, UNSPECIFIED Status: Acute Current Visit: Yes (4) S/P TURP SNOMED Code(s): 763740285, 33822194, 033072667 ICD Code: Z90.79 - ACQUIRED ABSENCE OF OTHER GENITAL ORGAN(S) Status: Acute Current Visit: Yes (5) COVID-19 SNOMED Code(s): 161192196 ICD Code: U07.1 - COVID-19 Status: Acute Current Visit: Yes (6) Hypoxia SNOMED Code(s): 251344149 ICD Code: R09.02 - HYPOXEMIA Status: Acute Current Visit: Yes - Discharge Plan Home Medications: Home Meds Metoprolol Succinate [Toprol XL] 25 mg PO DAILY 07/26/15 [History] atorvaSTATin [Lipitor] 20 mg PO BEDTIME 04/02/21 [History] Aspirin [Aspirin EC] 81 mg PO DAILY 04/03/21 [History] Ramipril [Altace] 5 mg PO DAILY 04/03/21 [History] Referrals: Enrico Lord MD [Primary Care Provider] - 04/19/21 11:00 am - Patient Data Vitals - Most Recent: Last Vital Signs Temp 36.2 C 04/06/21 09:21 Pulse 60 04/06/21 09:27 Resp 17 04/06/21 09:21 BP 128/62 04/06/21 09:28 Pulse Ox 91 L 04/06/21 10:09 Weight - Most Recent: 102.784 kg I&O - Last 24 hours: Intake & Output 04/05/21 04/06/21 04/06/21 22:59 06:59 14:59 Intake Total 930 750 Output Total 500 800 Balance 430 -50 Lab Results - Last 24 hrs: Laboratory Results - last 24 hr 04/06/21 04/06/21 Range/Units 05:30 05:30 WBC 9.43 (4.0-11.0) K/uL RBC 4.50 (4.50-5.90) M/uL Hgb 14.1 (13.0-17.0) g/dL Hct 40.6 (38.0-50.0) % MCV 90.2 (80.0-98.0) fL MCH 31.3 (27.0-32.0) pg MCHC 34.7 (31.0-37.0) g/dL RDW Std Deviation 45.3 (28.0-62.0) fl RDW Coeff of Dianna 14 (11.0-15.0) % Plt Count 272 (150-400) K/uL MPV 10.70 (7.40-12.00) fL Neut % (Auto) 73.9 (48.0-80.0) % Lymph % (Auto) 14.5 L (16.0-40.0) % [place] % (Auto) 11.6 (0.0-15.0) % Eos % (Auto) 0.0 (0.0-7.0) % Baso % (Auto) 0.0 (0.0-1.5) % Neut # (Auto) 7.0 H (1.4-5.7) K/uL Lymph # (Auto) 1.4 (0.6-2.4) K/uL [place] # (Auto) 1.1 H (0.0-0.8) K/uL Eos # (Auto) 0.0 (0.0-0.7) K/uL Baso # (Auto) 0.0 (0.0-0.1) K/uL Nucleated RBC % 0.0 /100WBC Nucleated RBCs # 0 K/uL Sodium 139 (136-148) mmol/L Potassium 4.6 (3.5-5.1) mmol/L Chloride 106 (98-107) mmol/L Carbon Dioxide 23.7 (21.0-32.0) mmol/L BUN 20 H (7.0-18.0) mg/dL Creatinine 1.0 (0.8-1.3) mg/dL Est Cr Clr Drug Dosing 69.55 mL/min Estimated GFR (MDRD) > 60.0 ml/min Glucose 126 H (74-106) mg/dL Calcium 8.3 L (8.5-10.1) mg/dL Phosphorus 4.1 (2.6-4.7) mg/dL Magnesium 2.4 (1.8-2.4) mg/dL Total Bilirubin 0.5 (0.2-1.0) mg/dL AST 35 (15-37) IU/L ALT 69 H (14-63) IU/L Alkaline Phosphatase 72 (46-116) U/L Total Protein 5.9 L (6.4-8.2) g/dL Albumin 2.9 L (3.4-5.0) g/dL Globulin 3.0 (2.6-4.0) g/dL Albumin/Globulin Ratio 1.0 (0.9-1.6) Med Orders - Current: Current Medications Acetaminophen (Acetaminophen 325 Mg Tab) 650 mg PO Q4H PRN PRN Reason: Pain (Mild 1-3)/fever Albuterol/Ipratropium (Albuterol/Ipratropium 3.0-0.5 Mg/3 Ml Neb Soln) 3 ml NEB Q4HRRT PRN PRN Reason: Shortness Of Breath/wheezing Albuterol/Ipratropium (Albuterol/Ipratropium 4 Gm Inhalation [place]) 0 gm INH Q4HRRT [facility] Last Admin: 04/06/21 10:06 Dose: 2 puff Documented by: Aspirin (Aspirin 81 Mg Tab.Ec) 81 mg PO DAILY [facility] Last Admin: 04/06/21 09:27 Dose: 81 mg Documented by: Atorvastatin Calcium (Atorvastatin 20 Mg Tab) 20 mg PO BEDTIME [facility] Last Admin: 04/05/21 21:34 Dose: 20 mg Documented by: Dexamethasone (Dexamethasone 4 Mg Tab) 6 mg PO DAILY [facility] Last Admin: 04/06/21 09:29 Dose: 6 mg Documented by: Enoxaparin Sodium (Enoxaparin 40 Mg/0.4 Ml Syringe) 40 mg SUBCUT Q24H [facility] Last Admin: 04/05/21 16:17 Dose: 40 mg Documented by: Guaifenesin/Dextromethorphan (Guaifenesin/Dextromethorphan 100-10 Mg/5 Ml Soln 10 Ml Cup) 10 ml PO Q4H PRN PRN Reason: Cough Last Admin: 04/04/21 22:10 Dose: 10 ml Documented by: Pantoprazole Sodium 40 mg/ (Sodium Chloride) 10 mls @ 300 mls/hr IV DAILY [facility] Last Admin: 04/06/21 09:30 Dose: 300 mls/hr Documented by: Remdesivir 100 mg/ Sodium (Chloride) 100 mls @ 100 mls/hr IV 04/06/21@1100 [facility] Stop: 04/06/21 11:59 Metoprolol Succinate (Metoprolol Succinate 25 Mg Tab.Er) 25 mg PO DAILY [facility] Last Admin: 04/06/21 09:27 Dose: 25 mg Documented by: Ondansetron HCl (Ondansetron 4 Mg/2 Ml Sdv) 4 mg IVPUSH Q4H PRN PRN Reason: Nausea/Vomiting Ramipril (Ramipril 2.5 Mg Cap) 5 mg PO DAILY [facility] Last Admin: 04/06/21 09:28 Dose: 5 mg Documented by: Sodium Chloride (Sodium Chloride 0.9% 10 Ml Syringe) 10 ml FLUSH ASDIRECTED PRN PRN Reason: Keep Vein Open Last Admin: 04/02/21 12:40 Dose: 10 ml Documented by: Sodium Chloride (Sodium Chloride 0.9% 2.5 Ml Syringe) 2.5 ml FLUSH ASDIRECTED PRN PRN Reason: Keep Vein Open Last Admin: 04/02/21 12:40 Dose: 2.5 ml Documented by: Discontinued Medications Albuterol/Ipratropium (Albuterol/Ipratropium 4 Gm Inhalation [place]) 0 gm INH Q4H PRN PRN Reason: Dyspnea Albuterol/Ipratropium (Albuterol/Ipratropium 4 Gm Inhalation [place]) 0 gm INH Q4H [facility] Last Admin: 04/04/21 05:06 Dose: 2 puff Documented by: Aspirin (Aspirin 325 Mg Tab.Ec) 650 mg PO DAILY [facility] Last Admin: 04/03/21 08:59 Dose: 650 mg Documented by: Sodium Chloride (Normal Saline) 1,000 mls @ 999 mls/hr IV .BOLUS ONE Stop: 04/02/21 13:24 Last Admin: 04/02/21 12:40 Dose: 999 mls/hr Documented by: Remdesivir 200 mg/ Sodium (Chloride) 250 mls @ 250 mls/hr IV ONETIME ONE Stop: 04/02/21 17:29 Last Admin: 04/02/21 17:40 Dose: 250 mls/hr Documented by: Remdesivir 100 mg/ Sodium (Chloride) 100 mls @ 100 mls/hr IV Q24H [facility] Stop: 04/06/21 17:14 Last Admin: 04/05/21 16:18 Dose: 100 mls/hr Documented by:
[2021-04-06 11:16] VITALS: BP 125/74; PULSE 53
== END 2021-04-06 15:00 | disposition home or self-care (01) | DRG 177 ==
LOC: MW.ED 11:35 → MW.MS 14:42
PROVIDERS: ADMIT Internal Medicine; ATTEND Internal Medicine
PROC: XW033E5 Introduction of Remdesivir Anti-infective into Peripheral Vein, Percutaneous Approach, New Technology Group 5 (ICD-10-PCS; principal; 2021-04-02)
DX: U07.1 COVID-19 (principal); R09.02 Hypoxemia; J12.82 Pneumonia due to coronavirus disease 2019; J96.01 Acute respiratory failure with hypoxia; I10 Essential (primary) hypertension; Z85.46 Personal history of malignant neoplasm of prostate; E78.5 Hyperlipidemia, unspecified; E78.00 Pure hypercholesterolemia, unspecified; R33.9 Retention of urine, unspecified; E66.9 Obesity, unspecified; Z86.19 Personal history of other infectious and parasitic diseases; Z90.79 Acquired absence of other genital organ(s); Z79.82 Long term (current) use of aspirin; Z95.1 Presence of aortocoronary bypass graft; Z68.34 Body mass index [BMI] 34.0-34.9, adult; Z79.899 Other long term (current) drug therapy; Z98.890 Other specified postprocedural states
CPT/HCPCS: 36415; 71045; 80053; 83735; 84484; 85025; 93005; 99285; J7030; U0002; 84100; 93010; 94640; 99284; A9270-GY; C9113; J1650; J7050; J8540